=== PATIENT | female | born 1980 | race African-American/Black ===

== ENCOUNTER 2021-04-03 08:00 | Inpatient (IN) | payer BC ==
[2021-04-03 09:43] VITALS: BMI 32.0
[2021-04-03] MEDS ORDERED: ELECTROLYTE-148 SOLN 500 ML IV ONE (09:55)
[2021-04-03] MEDS ORDERED: CITRIC ACID/SODIUM CITRATE 30 ML UNIT-DOSE CUP PO ONE (09:55)
[2021-04-03] MEDS ORDERED: ELECTROLYTE-148 SOLN 1,000 ML IV SCH (10:00)
[2021-04-03] MEDS ORDERED: morphine SULFATE/PF 1 MG/2 ML (2cc Syringe - QUVA) ONE (11:25)
[2021-04-03] MEDS ORDERED: SENNOSIDES/DOCUSATE COMBO (SENNA PLUS) TABLET (UD) PO PRN (12:47)
[2021-04-03] MEDS ORDERED: oxyCODONE HCL 5 MG TABLET PO PRN (12:47)
[2021-04-03] MEDS ORDERED: IBUPROFEN 800 MG/8 ML IJ IVPB PRN (12:47)
[2021-04-03] MEDS ORDERED: ACETAMINOPHEN 325 MG TABLET (FP) PO PRN (12:47)
[2021-04-03] MEDS ORDERED: ONDANSETRON 4 MG/2 ML VIAL IVPB PRN (12:47)
[2021-04-03] MEDS ORDERED: ACETAMINOPHEN 1000 MG/100 ML BAG IVPB PRN (12:47)
[2021-04-03] MEDS ORDERED: OXYTOCIN 20 UNITS in 0.9% NS 20 UNIT/1,000 ML INFUS.BAG IV SCH (13:00)
[2021-04-03] MEDS: CEFAZOLIN 2 GM in DEXTROSE 5%-WATER - 100 ML IVPB SCH (17:57)
[2021-04-04] MEDS: CEFAZOLIN 2 GM in DEXTROSE 5%-WATER - 100 ML IVPB SCH (01:38)
[2021-04-04] MEDS: ENOXAPARIN NA (PORCINE) 30 MG/0.3 ML DISP.SYRIN SQ SCH (09:25)
[2021-04-04] MEDS: IBUPROFEN 600 MG TABLET (FP) PO PRN ×2 (09:25→17:05)
[2021-04-04] MEDS: SIMETHICONE 80 MG TAB.CHEW (FP) PO PRN (09:25)
[2021-04-04] MEDS: PRENATAL VITAMINS W/ FOLIC ACID TABLET (FP) PO SCH (09:25)
[2021-04-04 09:45] LABS: BASO % 0.2 % (0-2.0); EOS % 0.8 % (0-4.5); HEMATOCRIT 36.1 % (32.4-45.2); HEMOGLOBIN 12.1 GM/dL (10.7-15.3); LYMPH % 22.3 % (8-40); MCH 29.6 pg (25.7-33.7); MCHC 33.6 g/dl (32.0-36.0); MEAN PLT VOLUME 8.5 fl (7.5-11.1); MONO % 6.9 % (3.8-10.2); NEUT % 69.8 % (42.8-82.8); PLATELET COUNT 263 10^3/uL (134-434); RDW 13.6 % (11.6-15.6); WHITE BLOOD COUNT 6.8 K/mm3 (4.0-10.0)
[2021-04-04] MEDS ORDERED: BISACODYL 10 MG SUPP.RECT RC PRN (12:47)
[2021-04-04] MEDS: ACETAMINOPHEN 500 MG TABLET (FP) PO SCH (19:58)
[2021-04-04] MEDS: SENNOSIDES/DOCUSATE COMBO (SENNA PLUS) TABLET (UD) PO SCH (22:14)
[2021-04-05] MEDS: SIMETHICONE 80 MG TAB.CHEW (FP) PO PRN ×2 (00:56→09:14)
[2021-04-05] MEDS: ACETAMINOPHEN 500 MG TABLET (FP) PO SCH ×4 (00:56→20:21)
[2021-04-05] MEDS: ENOXAPARIN NA (PORCINE) 30 MG/0.3 ML DISP.SYRIN SQ SCH (09:14)
[2021-04-05] MEDS: IBUPROFEN 600 MG TABLET (FP) PO PRN (09:14)
[2021-04-05] MEDS: PRENATAL VITAMINS W/ FOLIC ACID TABLET (FP) PO SCH (09:14)
[2021-04-05 21:44] VITALS: PULSE 84
[2021-04-05] MEDS: SENNOSIDES/DOCUSATE COMBO (SENNA PLUS) TABLET (UD) PO SCH (21:45)
[2021-04-06] MEDS: ACETAMINOPHEN 500 MG TABLET (FP) PO SCH ×2 (01:00→06:26)
[2021-04-06] MEDS: ENOXAPARIN NA (PORCINE) 30 MG/0.3 ML DISP.SYRIN SQ SCH (10:23)
[2021-04-06] MEDS: PRENATAL VITAMINS W/ FOLIC ACID TABLET (FP) PO SCH (10:23)
[2021-04-06 10:48] VITALS: BP 133/88; TEMP 98.1
== END 2021-04-06 13:05 | disposition home or self-care (01) | DRG 785 ==
LOC: JLDR 08:21 → J3W 13:45
PROVIDERS: ADMIT Specialist; ATTEND Specialist
PROC: 10D00Z1 Extraction of Products of Conception, Low, Open Approach (ICD-10-PCS; principal; 2021-04-03)
PROC: 0UT70ZZ Resection of Bilateral Fallopian Tubes, Open Approach (ICD-10-PCS; 2021-04-03)
DX: O34.211 Maternal care for low transverse scar from previous cesarean delivery (principal); Z3A.39 39 weeks gestation of pregnancy; Z37.0 Single live birth; Z30.2 Encounter for sterilization
CPT/HCPCS: 36415; 85025; 88302-TC; 88307-TC